=== PATIENT | male | born 1985 | race Caucasian/White ===

== ENCOUNTER 2020-03-28 12:41 | Emergency (ER) | payer OTHER ==
[~2020-03-28] VITALS: Ht 180.3 cm; Wt 99.8 kg
== END 2020-03-28 16:43 | disposition home or self-care (01) ==
LOC: ER 12:41
DX: N39.0 Urinary tract infection, site not specified (principal)

== ENCOUNTER 2020-04-23 12:09 | Emergency (ER) | payer OTHER ==
[~2020-04-23] VITALS: Ht 180.3 cm; Wt 99.3 kg
[2020-04-23] MEDS ORDERED: KETO10TA2 PO (13:58)
== END 2020-04-23 15:08 | disposition home or self-care (01) ==
LOC: ER 12:09
DX: S93.692A Other sprain of left foot, initial encounter (principal); X50.0XXA Overexertion from strenuous movement or load, initial encounter; Y93.89 Activity, other specified; Y92.69 Other specified industrial and construction area as the place of occurrence of the external cause; Y99.8 Other external cause status

== ENCOUNTER → 2020-09-09 | Outpatient (CLI) | payer OTHER ==
[~2020-09-09] MED LIST: KETO10TA2 PO
== END | disposition home or self-care (01) ==
LOC: PPH VACUNA
DX: Z23 Encounter for immunization (principal)

== ENCOUNTER 2020-11-28 12:11 | Emergency (ER) | payer OTHER ==
[~2020-11-28] VITALS: Ht 180.3 cm; Wt 102.1 kg
== END 2020-11-28 16:38 | disposition home or self-care (01) ==
LOC: ER 12:11
DX: B34.9 Viral infection, unspecified (principal); Z11.52 Encounter for screening for COVID-19

== ENCOUNTER 2021-05-06 17:33 | Emergency (ER) | payer OTHER ==
[~2021-05-06] VITALS: Ht 180.3 cm; Wt 99.8 kg
[2021-05-06] MEDS ORDERED: PROAIR HFA8.5 GM (17:42)
[2021-05-06] MEDS ORDERED: IPRAT-ALBUT 0.5-3 ML IH (22:27)
== END 2021-05-06 22:44 | disposition home or self-care (01) ==
LOC: ER 17:33
DX: J45.998 Other asthma (principal); B34.9 Viral infection, unspecified; Z20.822 Contact with and (suspected) exposure to COVID-19

== ENCOUNTER 2021-11-08 22:01 | Emergency (ER) | payer OTHER ==
[~2021-11-08] VITALS: Ht 180.3 cm; Wt 97.1 kg
[~2021-11-08 22:01] MED LIST changes: +IPRAT-ALBUT 0.5-3 ML IH; +PROAIR HFA8.5 GM
== END 2021-11-08 22:49 | disposition home or self-care (01) ==
LOC: ER 22:01
DX: R07.0 Pain in throat (principal); N48.89 Other specified disorders of penis

== ENCOUNTER 2021-11-13 22:28 | Emergency (ER) | payer OTHER ==
[~2021-11-13] VITALS: Ht 180.3 cm; Wt 98.0 kg
[2021-11-13] MEDS ORDERED: METHYLPREDNISOLO8 MG PO (22:35)
[2021-11-13] MEDS ORDERED: ANTIFUNGAL113 GM (22:35)
[2021-11-14] MEDS ORDERED: ORASEP SPRAY30 ML MM (02:12)
== END 2021-11-14 02:48 ==
LOC: ER 22:28
DX: J06.0 Acute laryngopharyngitis (principal); R53.81 Other malaise; Z20.822 Contact with and (suspected) exposure to COVID-19; F12.90 Cannabis use, unspecified, uncomplicated

== ENCOUNTER 2021-11-28 15:55 | Emergency (ER) | payer OTHER ==
[~2021-11-28] VITALS: Ht 180.3 cm; Wt 98.0 kg
[~2021-11-28 15:55] MED LIST changes: +ANTIFUNGAL113 GM; +METHYLPREDNISOLO8 MG PO; +ORASEP SPRAY30 ML MM
== END 2021-11-28 21:11 | disposition home or self-care (01) ==
LOC: ER 15:55
DX: R13.10 Dysphagia, unspecified (principal)

== ENCOUNTER 2021-12-09 16:04 | Emergency (ER) | payer OTHER ==
[~2021-12-09] VITALS: Ht 180.3 cm; Wt 98.0 kg
[2021-12-09] MEDS ORDERED: CIPRO500 MG PO (18:33)
== END 2021-12-09 19:34 | disposition home or self-care (01) ==
LOC: ER 16:04
DX: N48.89 Other specified disorders of penis (principal); L02.31 Cutaneous abscess of buttock; B96.89 Other specified bacterial agents as the cause of diseases classified elsewhere

== ENCOUNTER 2022-02-10 17:28 | Emergency (ER) | payer OTHER ==
[~2022-02-10] VITALS: Ht 175.3 cm; Wt 90.7 kg
[~2022-02-10 17:28] MED LIST changes: +CIPRO500 MG PO
[2022-02-10] MEDS ORDERED: PROAIR HFA8.5 GM (18:18)
== END 2022-02-10 21:07 | disposition home or self-care (01) ==
LOC: ER 17:28
DX: J06.9 Acute upper respiratory infection, unspecified (principal); Z20.822 Contact with and (suspected) exposure to COVID-19

== ENCOUNTER 2022-03-31 06:40 | Emergency (ER) | payer OTHER ==
[~2022-03-31] VITALS: Ht 180.3 cm; Wt 104.3 kg
[2022-03-31] MEDS ORDERED: LEVOFLOXACIN750 MG PO (10:55)
[2022-03-31] MEDS ORDERED: BUDESONIDE0.5 MG/2 M IH (10:55)
[2022-03-31] MEDS ORDERED: IPRAT-ALBUT 0.5-3 ML IH (10:55)
[2022-03-31] MEDS ORDERED: PROMETH-CODEIN 65 ML PO (10:55)
[2022-03-31] MEDS ORDERED: MUCINEX DM ER1 EAC1 PO (10:55)
[2022-03-31] MEDS ORDERED: MEDROLPACK PO (10:55)
== END 2022-03-31 11:09 ==
LOC: ER 06:40
DX: J06.9 Acute upper respiratory infection, unspecified (principal)

== ENCOUNTER 2022-09-12 11:48 | Emergency (ER) | payer OTHER ==
[~2022-09-12] VITALS: Ht 180.3 cm; Wt 109.8 kg
[~2022-09-12 11:48] MED LIST changes: +BUDESONIDE0.5 MG/2 M IH; +LEVOFLOXACIN750 MG PO; +MEDROLPACK PO; +MUCINEX DM ER1 EAC1 PO; +PROMETH-CODEIN 65 ML PO
[2022-09-12] MEDS ORDERED: BUDESONIDE0.5 MG/2 M IH (14:12)
[2022-09-12] MEDS ORDERED: HYDROXYZINE PAM50 MG PO (14:12)
[2022-09-12] MEDS ORDERED: PROAIR RESPICL90 MCG IH (14:12)
[2022-09-12] MEDS ORDERED: IPRAT-ALBUT 0.5-3 ML IH (14:12)
== END 2022-09-12 14:17 ==
LOC: ER 11:48
DX: J45.901 Unspecified asthma with (acute) exacerbation (principal); Z91.013 Allergy to seafood